=== PATIENT | female | born 1985 | race Two or more races ===

== ENCOUNTER 2017-05-08 09:41 | Day surgery (SDC) | payer OTHER ==
[~2017-05-08] VITALS: Ht 165.1 cm; Wt 56.7 kg
[2017-05-08] VITALS (11 sets, daily range): BP systolic 102–121; BP diastolic 65–75
[~2017-05-08 09:41] MED LIST: ASPIR 8181 MG ORAL; ASPIRIN81 MG ORAL; CRESTOR40 MG ORAL; HYDROCODON-ACE1 EA16 ORAL; IMITREX50 MG ORAL; LANSOPRAZOLE30 MG ORAL; LISINOPRIL10 MG ORAL; PANTOPRAZOLE SO40 MG ORAL; [UNRECOGNIZED DRUG - OTHER] IJ
--- NOTE | 2017-05-08 10:36 | Short Stay Surgery H&P ---
History of Present Illness History of Present Illness Chief Complaint rectal bleed HPI Misty Ibarra is a 31 year old female who was admitted on for Ulcerative Colitis Patient History Allergies: Coded Allergies: NO KNOWN ALLERGIES (Verified Allergy, Unknown, 05/08/17) COPIED FROM UNCODED SECTION PAST MEDICAL HISTORY: (1) Ulcerative colitis Past Surgeries: Social History: Medication History Scheduled Pantoprazole* (Pantoprazole*), 40 MG ORAL BID, (Reported) Sumatriptan Succinate* (Imitrex*), 50 MG ORAL NEEDED, (Reported) [Symphony], Unknown Dose IJ EVERY FOUR WEEKS, (Reported) Review of Systems Cardiovascular: Reports: no symptoms Skeletal: Reports: no symptoms Gastrointestinal: Reports: other Genitourinary: Reports: no symptoms Neurologic: Reports: no symptoms Endocrine: Reports: no symptoms Hematologic: Reports: no symptoms Physical Exam Labs Laboratory Tests Test 05/08/17 10:10 Urine HCG, Qualitative Negative Skin: normal HENT: normal Heart: normal Lungs: normal Abdomen: normal Extremities: normal Plan Plan of Care colonoscopy Final Diagnosis: Attestation Are the patient's medical conditions optimized for surgery? Attestation Response: yes BERNADETTE YU May 08, 2017 10:36
--- NOTE | 2017-05-08 10:36 | Pre-Procedure Note/Attestation ---
Pre-Procedure Note/Attestation Complete Prior to Procedure Planned Procedure: not applicable Procedure Narrative: colonoscopy Indications for Procedure Pre-Operative Diagnosis: ulcerative colitis Attestation I attest that I discussed the nature of the procedure; its benefits; risks and complications; and alternatives (and the risks and benefits of such alternatives ), prior to the procedure, with the patient (or the patient's legal sales representative womens health). I attest that, if there was a reasonable possibility of needing a blood transfusion, the patient (or the patient's legal sales representative womens health) was given the [facility] standardized written summary, pursuant to the Chad Ry Blood Safety Act ([place] Health and Safety Code # 1645, as amended). I attest that I re-evaluated the patient just prior to the surgery and that there has been no change in the patient's H&P, except as documented below: BERNADETTE YU May 08, 2017 10:36
[2017-05-08] MEDS ORDERED: HUMIRA40 MG/0.2 SUBQ (11:04)
[2017-05-08] MEDS ORDERED: loloestrin PO (11:04)
[2017-05-08] MEDS ORDERED: Lidocaine 1% MPF 10mg/ml 5ml ONE (11:50)
[2017-05-08] MEDS ORDERED: Propofol 200mg/20ml IV ONE (11:50)
[2017-05-08] MEDS ORDERED: fentaNYL 100 mcg/2 mL IV PRN (12:15)
[2017-05-08] MEDS ORDERED: DiphenhydrAMINE 50mg/ml Inj IVP PRN (12:15)
[2017-05-08] MEDS ORDERED: Midazolam 2mg/2ml Inj IVP PRN (12:15)
[2017-05-08] MEDS ORDERED: Atropine Inj 1mg/10ml Syr IV PRN (12:15)
--- NOTE | 2017-05-08 12:20 | Endoscopy Procedure Note ---
Endoscopy Procedure Note Indication for Procedure: uc Procedures Performed: colonoscopy Operative Findings/Diagnosis: same Specimen: yes Pt Tolerated Procedure Well: Yes Estimated Blood Loss: none Anesthesiologist: demetrice Anesthesia: MAC Implant(s) used?: No 50 yrs or older w/o bx or poly: No 10yrs. F/U not recommended: Yes If not recommended, why?: Above average risk 10 yrs. F/U needed: Yes 18 years or older w/prev. colo: Yes <3yrs. since last colonoscopy: No BERNADETTE YU May 08, 2017 12:20
--- NOTE | 2017-05-08 12:22 | Anethesia Preoperative Eval ---
Anesthesia Pre-op PMH/ROS General Date of Evaluation: May 08, 2017 Time of Evaluation: 11:50 Anesthesiologist: missy ASA Score: ASA 3 Mallampati Score Class I : Soft palate, uvula, fauces, pillars visible Class II: Soft palate, uvula, fauces visible Class III: Soft palate, base of uvula visible Class IV: Only hard plate visible Mallampati Classification: Class II Surgeon: kofi Diagnosis: ulcerative colitis Anesthesia History: none - colonoscopy Social History: smoking - nonsmoker Family History: no anesthesia problems Allergies: Coded Allergies: NO KNOWN ALLERGIES (Verified Allergy, Unknown, 05/08/17) COPIED FROM UNCODED SECTION Medications: see eMAR Past Medical History Pulmonary: Reports: other - bronchitis Gastrointestinal/Genitourinary: Reports: other - -hcg, uc Anesthesia Pre-op Phys. Exam Physician Exam Last Vital Signs Date Time Temp Pulse Resp B/P (MAP) Pulse Ox O2 Delivery O2 Flow Rate FiO2 05/08/17 11:00 97.9 56 19 105/71 97 Room Air Constitutional: NAD Neurologic: CN 2-12 intact Cardiovascular: RRR Respiratory: CTA Gastrointestinal: S/NT/ND Airway Exam Mallampati Score: Class II MO: full Neck: supple TMD: 2fb ROM: full Teeth: intact Anesthesia Pre-op A/P Labs Labs Test 05/08/17 10:10 Urine HCG, Qualitative Negative Urine Test Test 05/08/17 10:10 Urine HCG, Qualitative Negative Risk Assessment & Plan Assessment: asa3 Plan: mac Status Change Before Surgery: No Pre-Antibiotics Drug: WAQAS Sultana May 08, 2017 12:22
--- NOTE | 2017-05-08 13:16 | Immediate Post-Op Evaluation ---
Immediate Post-Op Evalulation Immediate Post-Op Evalulation Procedure: colonoscopy Date of Evaluation: May 08, 2017 Time of Evaluation: 12:38 IV Fluids: 250ml Blood Products: none Estimated Blood Loss: negligible Blood Pressure Systolic: 102 Blood Pressure Diastolic: 67 Pulse Rate: 70 Respiratory Rate: 18 O2 Sat by Pulse Oximetry: 99 Temperature (Fahrenheit): 98.2 Pain Score (1-10): 0 Nausea: No Vomiting: No Complications none Patient Status: awake, reacts, patent Hydration Status: adequate Drug: WAQAS Sultana May 08, 2017 13:16
--- NOTE | 2017-05-08 14:30 | 48 Hour Post Anesthesia Eval ---
Post Anesthesia Evaluation Procedure: colonoscopy Date of Evaluation: May 08, 2017 Time of Evaluation: 13:30 Blood Pressure Systolic: 119 0: 65 Pulse Rate: 61 Respiratory Rate: 18 Temperature (Fahrenheit): 97.5 O2 Sat by Pulse Oximetry: 100 Airway: patent Nausea: No Vomiting: No Pain Intensity: 0 Hydration Status: adequate Cardiopulmonary Status: stable Mental Status/LOC: patient returned to baseline Post-Anesthesia Complications: none Follow-up care needed: N/A WAQAS PEOPLES May 08, 2017 14:30
--- NOTE | 2017-05-09 00:15 | Procedure Note ---
DATE OF PROCEDURE: 05/08/2017 SURGEON: Cristobal Dumont M.D. PROCEDURE: Colonoscopy with biopsy. ANESTHESIOLOGIST: Tosha Augustin M.D. INSTRUMENT: Olympus adult flexible colonoscope. INDICATION: Ulcerative colitis flare. The procedure, risks, benefits, and possible consequences, including hemorrhage, aspiration, perforation and infection, and alternative treatments, were explained to the patient/legal guardian by Dr. Cristobal Dumont and the patient/legal guardian understood and accepted these risks. DESCRIPTION OF PROCEDURE: After informed consent was obtained and the patient was adequately sedated, first rectal exam was performed, which was normal. Then, the scope was advanced from the rectum to cecum documented by appendiceal orifice, ileocecal valve, and right upper quadrant palpation. Quality of prep was excellent. The patient has evidence of colitis starting from the rectum. It is actually mostly confined to the rectum. The rest of the colon was grossly within normal limits. Biopsy from the cecum, transverse colon, sigmoid, and rectum was obtained. The patient tolerated the procedure well without any complication. SUMMARY FINDINGS: Colitis, active, confined to the rectum. RECOMMENDATIONS: 1. Start Rowasa enema 4 g daily for next 14 days. 2. Follow biopsy results. 3. Check hemoglobin levels and decide if we can continue same medication. Cristobal Dumont M.D. DR: DAWOOD JOB#: [id number] CC:
== END 2017-05-08 13:45 | disposition home or self-care (01) ==
LOC: GAS 09:41
DX: K51.90 Ulcerative colitis, unspecified, without complications (principal); K62.89 Other specified diseases of anus and rectum
CPT/HCPCS: 45380; 81025; J2704; 94003; 94150